=== PATIENT | female | born 1995 | race Two or more races ===

== ENCOUNTER → 2024-11-03 | Outpatient (CLI) | payer BC, SELFPAY ==
[2024-11-03 09:49] LABS: Glucose Estimated Average 105 mg/dL (80-131); Hemoglobin A1C 5.3 % Hgb (4.8-6.0)
[2024-11-03 09:56] LABS: Free T4 (Free Thyroxine) 1.18 ng/dL (0.89-1.76)
[2024-11-08 06:57] LABS: Thyroid Peroxidase Antibodies* <1 IU/mL (<9)
== END | disposition home or self-care (01) ==
LOC: COPL 08:32
PROVIDERS: PCP Family Medicine; Referring Provider Internal Medicine Endocrinology, Diabetes & Metabolism; Visit Provider Internal Medicine Endocrinology, Diabetes & Metabolism
DX: E16.2 Hypoglycemia, unspecified (principal)
CPT/HCPCS: 36415; 83036; 84439; 84443; 86376

== ENCOUNTER → 2025-08-22 | Outpatient (CLI) | payer BC, SELFPAY ==
--- NOTE | 2025-08-22 12:11 | XR_ITS ---
Examination: Duplex scan of the lower extremity, unilateral right complete Date and time of exam: August 22, 2025, 1227 hours INDICATIONS: Onset right calf pain beginning 2 weeks ago Technique: Duplex scan of the extremity veins using B-mode/grayscale imaging and Doppler spectral analysis and color flow Attention is directed to internal echogenicity, compression and augmentation involving these veins, color flow assessment, spectral analysis Findings: Major deep venous structures in the extremity demonstrate normal course and caliber. There is no evidence of deep vein thrombosis. Normal color flow and spectral analysis Impression: Negative for DVT..
== END | disposition home or self-care (01) ==
LOC: CDIM 11:58
PROVIDERS: PCP Family Medicine; Referring Provider Family Medicine; Visit Provider Family Medicine
DX: M79.661 Pain in right lower leg (principal)
CPT/HCPCS: 93971

== ENCOUNTER → 2025-10-18 | Outpatient (CLI) | payer BC, SELFPAY ==
[2025-10-18 11:41] LABS: Collection Type, Urine Clean Catch; RBC,Urine 0 /hpf (0-3); WBC,Urine 0 /hpf (0-5)
[2025-10-18 12:23] LABS: Bilirubin,Urine Negative (Negative); Blood,Urine Negative (Negative); Clarity,Urine Clear (Clear/Hazy); Color,Urine Yellow (Lt Yel-Yel); Glucose, Urine Negative (Negative); Ketones,Urine Negative (Negative); Leukocyte Esterase,Urine Negative (Negative); Nitrite,Urine Negative (Negative); PH,Urine 6.5 (5.0-7.0); Protein,Urine Negative (Neg - Trace); Specific Gravity,Urine 1.030 (1.001-1.035); Squamous Epithelial Cell,Urine 1 /hpf (0-5); Urobilinogen,Urine Negative mg/dL (0.0-1.0)
[2025-10-18 13:18] LABS: Basophils # (Auto) 0.1 Thou/mm3 (0.0-0.2); Basophils % (Auto) 1 % (0-2.5); Eosinophils # (Auto) 0.1 Thou/mm3 (0.0-0.5); Eosinophils % (Auto) 2 % (0-10); Hematocrit 40.1 % (36.0-46.0); Hemoglobin 13.0 g/dL (12.0-16.0); Immature Granulocytes Auto 0.01 Thou/mm3 (0.00-0.00); Lymphocytes # (Auto) 1.8 Thou/mm3 (1.0-4.8); Lymphocytes % (Auto) 29 % (10-50); Mean Corpuscular HGB Conc 32.4 g/dl (31.0-37.0); Mean Corpuscular Hemoglobin 28.8 pg (25.0-35.0); Mean Corpuscular Volume 89 fL (80-100); Monocytes # (Auto) 0.4 Thou/mm3 (0.0-0.8); Monocytes % (Auto) 6 % (0-12); Neutrophils # (Auto) 3.9 Thou/mm3 (1.8-7.7); Neutrophils % (Auto) 62 % (37-80); Nucleated Red Blood Cell # 0.00 Thou/mm3 (0.00-0.00); Nucleated Red Blood Cell % 0 /100 WBC (0); Platelet Count 321 Thou/mm3 (140-440); RDW Standard Deviation 39.8 fL (36.4-46.3); Red Blood Count 4.51 Miln/mm3 (4.00-5.20); White Blood Count 6.2 Thou/mm3 (3.6-11.0)
[2025-10-18 13:32] LABS: Glucose Estimated Average 103 mg/dL (80-131); Hemoglobin A1C 5.2 % Hgb (4.8-6.0)
[2025-10-18 13:35] LABS: Alanine Aminotransferase 11 U/L (10-49); Albumin, Serum 4.6 gm/dL (3.5-5.0); Albumin/Globulin Ratio 1.5 (1.2-2.2); Alkaline Phosphatase 88 U/L (46-116); Anion Gap 7 (7-16); Aspartate Amino Transferase 19 U/L (0-34); BUN/Creatinine Ratio 10 Ratio (12-20); Bilirubin,Total 0.3 mg/dL (0.3-1.2); Blood Urea Nitrogen 9 mg/dL (9-23); Calcium 9.5 mg/dL (8.3-10.6); Calcium (Corrected) 9.5 mg/dL (8.5-10.1); Carbon Dioxide 28.1 mMol/L (20.0-31.0); Cardiac Risk Estimate 4.0 RATIO (3.7-5.6); Chloride 106 mMol/L (98-107); Cholesterol 157 mg/dL (132-200); Creatinine (Component) 0.9 mg/dL (0.6-1.3); Globulin 3.0 gm/dL (2.3-3.5); Glucose 90 mg/dL (74-106); HDL Cholesterol 39 mg/dL (40-60); LDL Cholesterol,Calculated 90 mg/dL (0-130); Osmolality,Calculated 279 (275-295); Potassium 4.4 mMol/L (3.4-5.1); Sodium 141 mMol/L (136-145); Thyroid Stimulating Hormone 1.25 uIU/mL (0.55-4.78); Total Protein 7.6 gm/dL (5.7-8.2); Triglycerides 141 mg/dL (30-150); eGFR > 60 See Note
[2025-10-18 13:37] LABS: Vitamin B12 300 pg/mL (211-911); Vitamin D 25 Hydroxy Total 27.8 ng/mL (7.3-40.2)
== END | disposition home or self-care (01) ==
LOC: COPL 11:33
PROVIDERS: PCP Family Medicine; Referring Provider Registered Nurse; Visit Provider Registered Nurse
DX: R79.89 Other specified abnormal findings of blood chemistry (principal); N39.0 Urinary tract infection, site not specified
CPT/HCPCS: 36415; 80053; 80061; 81001; 82306; 82607; 83036; 84443; 85025; 87086